=== PATIENT | male | born 1990 | race African-American/Black ===

== ENCOUNTER 2017-10-19 21:11 | Emergency (ER) | payer OTHER ==
[~2017-10-19] VITALS: Ht 177.8 cm; Wt 68.0 kg
[2017-10-19] MEDS ORDERED: IBUPROFEN 600600 M1 PO (21:17)
[2017-10-19] MEDS ORDERED: ROBAXIN 750 MG750 M1 PO (21:18)
[2017-10-19] MEDS ORDERED: MEDROLDOSEPACK PO (22:03)
[2017-10-19] MEDS ORDERED: HYDROCODONE-AP1 EAC6 PO (22:03)
[2017-10-19] MEDS ORDERED: FLEXERIL PO (22:03)
[2017-10-19 22:22] VITALS: BP 117/80
== END 2017-10-19 22:25 | disposition home or self-care (01) ==
LOC: ER 21:11
DX: S39.012A Strain of muscle, fascia and tendon of lower back, initial encounter (principal); V89.2XXA Person injured in unspecified motor-vehicle accident, traffic, initial encounter; Y93.89 Activity, other specified; Y92.89 Other specified places as the place of occurrence of the external cause; Y99.8 Other external cause status

== ENCOUNTER 2018-03-09 14:12 | Emergency (ER) | payer OTHER ==
[~2018-03-09] VITALS: Ht 177.8 cm; Wt 72.6 kg
[~2018-03-09 14:12] MED LIST: FLEXERIL PO; HYDROCODONE-AP1 EAC6 PO; IBUPROFEN 600600 M1 PO; MEDROLDOSEPACK PO; ROBAXIN 750 MG750 M1 PO
[2018-03-09] MEDS ORDERED: NORCO 5-325 TA1 EACH PO (14:25)
[2018-03-09] MEDS ORDERED: IBUPROFEN 600600 M1 PO (14:25)
[2018-03-09] MEDS ORDERED: TIZANIDINE HCL4 MG PO (14:25)
[2018-03-09 14:31] VITALS: BP 108/75
== END 2018-03-09 14:57 | disposition home or self-care (01) ==
LOC: ER 14:12
DX: M54.5 Low back pain (principal); M54.6 Pain in thoracic spine